=== PATIENT | female | born 1970 | race American Indian/Alaskan Native ===

== ENCOUNTER 2017-03-23 11:13 | Emergency (ER) | payer OTHER ==
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
[2017-03-23 11:51] VITALS: BP 176/96
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
[2017-03-23] MEDS ORDERED: FLEXERIL PO ONE (13:28)
[2017-03-23] MEDS ORDERED: TORADOL IM ONE (13:28)
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
== END 2017-03-23 14:28 | disposition home or self-care (01) ==
LOC: ED 11:13
DX: S16.1XXA Strain of muscle, fascia and tendon at neck level, initial encounter (principal); M79.1 Myalgia; R51 Headache; I10 Essential (primary) hypertension; V49.49XA Driver injured in collision with other motor vehicles in traffic accident, initial encounter; Y93.9 Activity, unspecified; Y99.9 Unspecified external cause status; Y92.410 Unspecified street and highway as the place of occurrence of the external cause
CPT/HCPCS: 70450; 72100; 72125; 96372; 99284; J1885

== ENCOUNTER 2022-03-13 10:34 | Emergency (ER) | payer SELFPAY ==
[2022-03-13 10:45] VITALS: BP 192/99
== END 2022-03-13 12:00 | disposition left against medical advice (07) ==
LOC: ED 10:34
DX: I10 Essential (primary) hypertension (principal); R42 Dizziness and giddiness; Z53.21 Procedure and treatment not carried out due to patient leaving prior to being seen by health care provider